=== PATIENT | female | born 1955 | race Caucasian/White ===

== ENCOUNTER → 2021-06-22 | Outpatient (CLI) | payer BC | LOC: LABNPT 08:39 | PROVIDERS: ATTEND Family Medicine | DX: Z20.822 Contact with and (suspected) exposure to COVID-19 (principal) | CPT/HCPCS: 87635 ==

== ENCOUNTER → 2021-09-17 | Outpatient (CLI) | payer BC ==
--- NOTE | 2021-09-17 12:29 | Diagnostic Imaging Report ---
INDICATION: Routine screening. COMPARISON: 08/28/2020 and 07/23/2019. TECHNIQUE: 2D and 3D bilateral screening mammography was performed with CAD. FINDINGS: Both breasts are heterogeneously dense, limiting the sensitivity of mammography. The parenchymal pattern is stable. There is an intraparenchymal lymph node in the upper outer right breast. No spiculated mass or malignant-appearing microcalcifications are seen. The axillae are unremarkable. IMPRESSION: No mammographic features suspicious for malignancy are identified. ACR BI-RADS Category 2: Benign findings. Result letter will be mailed to the patient. Note: At least 10% of breast cancer is not imaged by mammography. Dictated by: Dictated on workstation # [id number]
== END ==
LOC: RAD 10:45
PROVIDERS: ATTEND Family Medicine
DX: Z12.31 Encounter for screening mammogram for malignant neoplasm of breast (principal)
CPT/HCPCS: 77063; 77067

== ENCOUNTER → 2022-08-25 | Outpatient (CLI) | payer MEDICARE, OTHER ==
--- NOTE | 2022-08-26 11:32 | Diagnostic Imaging Report ---
INDICATION: Routine screening. Comparison is made with prior mammogram 09/17/2021 and 08/28/2020. 2-D and 3-D bilateral screening mammography was performed with CAD. CAD is utilized. The current study was also evaluated with a Computer Aided Detection (CAD) system. Scattered fibroglandular densities are identified bilaterally. The parenchymal pattern is stable. No mass or malignant-appearing microcalcifications are seen. Axillae are unremarkable. IMPRESSION: BI-RADS Category 1 No mammographic features suspicious for malignancy are identified. Dictated by: Dictated on workstation # [id number]
== END ==
LOC: RAD 14:07
PROVIDERS: ATTEND Family Medicine
DX: Z12.31 Encounter for screening mammogram for malignant neoplasm of breast (principal)
CPT/HCPCS: 77063; 77067

== ENCOUNTER → 2022-09-15 | Outpatient (CLI) | payer MEDICARE, OTHER | LOC: CARD 13:25 | PROVIDERS: ATTEND Family Medicine | DX: R07.9 Chest pain, unspecified (principal); Z86.79 Personal history of other diseases of the circulatory system | CPT/HCPCS: 93306 ==

== ENCOUNTER → 2022-11-23 | Outpatient (CLI) | payer MEDICARE, OTHER ==
[~2022-11-23] VITALS: Ht 162 cm; Wt 72.0 kg
[~2022-11-23] MED LIST: CATHETER FLUSH 10 ML SYR IVP PRN; REGADENOSON 0.4 MG/5 ML SYR (LEXISCAN) IV ONE
[2022-11-23 09:24] VITALS: BP 171/73
--- NOTE | 2022-11-23 22:18 | STRESS TEST ---
DATE OF SERVICE: 11/23/2022 RESTING AND POST REGADENOSON TECHNETIUM-99M TETROFOSMIN SPECT CT IMAGING ORDERING PHYSICIAN: Dr. Crook. PRIMARY PHYSICIAN: Dr. Infante. CLINICAL DIAGNOSIS: Chest discomfort. Baseline images were carried out after injection of 10.21 mCi of technetium-99m tetrofosmin. This was followed by 0.4 mg regadenoson and 29.7 mCi of technetium-99m tetrofosmin for stress imaging. Electrocardiogram showed sinus rhythm at baseline. There was subtle nonspecific ST abnormality. The electrocardiogram did not change significantly with the regadenoson infusion. The patient tolerated the procedure well. Review of images at rest and following stress does not indicate any significant perfusion defects consistent with myocardial ischemia or infarction. Gated images showed normal global left ventricular systolic function with normal regional wall motion. Left ventricular ejection fraction is calculated to be 74%. CONCLUSIONS: 1. No evidence of any significant myocardial ischemia or infarction on this study. 2. Normal regional wall motion. 3. Normal global left ventricular systolic function with a calculated ejection fraction of 74%. Job ID: [id number] DocumentID: [id number] Dictated Date: 11/23/2022 20:10:55 Network Control Operator Date: 11/23/2022 22:16:00 Dictated By: OLY CROOK MD; AJ; FACP; FACC;
== END ==
LOC: CARD 07:35
PROVIDERS: ATTEND Internal Medicine Cardiovascular Disease
DX: R07.89 Other chest pain (principal)
CPT/HCPCS: 78452; 93017; A9502